=== PATIENT | male | born 1995 | race Caucasian/White ===

== ENCOUNTER 2016-12-29 22:50 | Emergency (ER) | payer OTHER | END 2016-12-30 02:45 | disposition home or self-care (01) | LOC: CED 22:50 | DX: F15.129 Other stimulant abuse with intoxication, unspecified (principal); F19.10 Other psychoactive substance abuse, uncomplicated; F17.200 Nicotine dependence, unspecified, uncomplicated | CPT/HCPCS: 99284 ==